=== PATIENT | male | born 1950 | race Caucasian/White ===

== ENCOUNTER 2023-03-10 08:41 | Inpatient (IN) | payer MEDICARE, OTHER ==
[2023-03-10] VITALS (24 sets, daily range): BP systolic 120–145; BP diastolic 50–102
[~2023-03-10] VITALS: Ht 185.4 cm; Wt 103.7 kg
[~2023-03-10 08:41] MED LIST: ALDACTONE25 MG PO; AMLODIPINE BESY10 MG PO; ASPIRIN EC325 MG PO; CEFDINIR300 MG PO; ELIQUIS5 MG PO; LABETALOL HCL200 MG PO; LIPITOR20 MG PO; LISINOPRIL-HCT1 EAC2 PO; METOPROLOL SUC100 MG PO; METOPROLOL SUC200 MG PO; NORVASC5 MG PO; OXYCODONE HCL5 MG PO; PLAVIX75 MG PO; PREDNISONE20 MG PO; SAW PALMETTO C1 EACH PO; TERAZOSIN HCL5 MG PO; VENTOLIN HFA18 GM INH; ZESTRIL5 MG PO
[2023-03-10 09:01] LABS: HEMOGLOBIN 14.8 g/dL (12.0-18.0); MCH 30.5 (27-36); MCHC 32.2 g/dl (30-36); MCV 94.9 fl (81-99); PLATELET COUNT 195 K/uL (140-440); RBC 4.85 M/ul (4.3-5.7); RDW 14.4 (10.5-15.0)
[2023-03-10 09:15] LABS: BASOPHILS, MANUAL DIFF 1; EOSINOPHILS, MANUAL DIFF 4; LYMPHOCYTES, MANUAL DIFF 24; MONOCYTES, MANUAL DIFF 3; NEUTROPHILS, MANUAL DIFF 68
[2023-03-10 09:21] LABS: BASE EXCESS, BLOOD GAS -5.7 mmol/L (-2-2); O2 SATURATION, BLOOD GAS > 100.0 % (95.0-100.0); OXYGEN RECEIVED, BLOOD GAS 100%; PCO2, BLOOD GAS 55.9 mmHg (35-45); PH, BLOOD GAS 7.22 (7.35-7.45); PO2, BLOOD GAS 481 mmHg (80-100); TOTAL CO2, BLOOD GAS 24.7
[2023-03-10 09:23] LABS: ALBUMIN 4.3 g/dL (3.4-5.0); ALBUMIN/GLOBULIN RATIO 1.34 (1.1-2.4); ANION GAP 14.3 (7-21); BILIRUBIN, TOTAL 0.7 ng/dL (0.2-1.0); BUN/CREATININE RATIO 11.42 (6.0-28.6); CALCIUM 9.1 mg/dL (8.5-10.1); CREATININE, SERUM 1.75 mg/dL (0.70-1.30); POTASSIUM 4.3 mmol/L (3.5-5.1); PROTEIN, TOTAL 7.5 g/dL (6.4-8.2)
[2023-03-10 10:05] LABS: PH, VENOUS 7.254 (7.31-7.41)
[2023-03-10 10:17] LABS: INFLUENZA B NAA NEGATIVE (NEGATIVE); RESPIRATORY SYNCYTIAL VIR NAA NEGATIVE (NEGATIVE)
[2023-03-10 12:00] LABS: PH, VENOUS 7.307 (7.31-7.41)
[2023-03-10] MEDS ORDERED: DILTIAZEM 24HR240 M1 PO (13:08)
--- NOTE | 2023-03-10 13:50 | NUR ---
REPORT RECECIVED FROM ED RN ON 73 YEAR OLD MALE PATIENT ADMITTED TO CCU FROM ED VIA STRETCHER UNDER DR. SHIPMAN WITH DX OF RESP DISTRESS. UPON ARRIVAL TO CCU PATIEN IS ON BIPAP AT 40 % FIO2. IS AWAKE, ALERT AND ORIENTED, COOPERATIVE. PATIOENT IS ABLE TO STAND AND PIVIOT FRON STRETCHER TO BED ON BIPAP. IS FAIRLY STABLE ON FEET. PATIENT HAS HX OF ASTHMA. USE MDI AT HOME. ADMISSION PROCESS STARTED.
--- NOTE | 2023-03-10 14:42 | EKG ---
[facility] [address] [place], [place] [address] Signed Atrial fibrillation with rapid ventricular response Nonspecific ST and T wave abnormality Abnormal ECG When compared with ECG of 17-JAN-2023 11:50, No significant change was found Confirmed by ADRIANA SHIPMAN MD ([id number]) on 03/10/2023 2:42:02 PM Electronically Signed By: ADRIANA SHIPMAN 03/10/23 1442 PATIENT NAME: EDITH JASON Electrocardiogram DATE OF : 46 PHYSICIAN: ADRIANA SHIPMAN REPORT #: [id number] REPORT IS CONFIDENTIAL AND NOT TO BE RELEASED WITHOUT AUTHORIZATION
--- NOTE | 2023-03-10 15:00 | NUR ---
DR. SHIPMAN IN ROOM TO SEE PATIENT ORDERS RECEIVED FOR ABG, CMP, CBC. MEDICATIONS TO BE GIVEN INCLUDE SOLUMEDROL AND IV ABX. SIP OF WATER GIVEN. LUNGS ARE TIGHT WITH WHEEZES THROUGHOUT.
[2023-03-10 15:22] LABS: BASOPHILS 0.1 % (0-2); EOSINOPHILS 0.1 % (0-6); HEMATOCRIT 43.3 % (35.0-50.0); LYMPHOCYTES 3.4 % (24-44); MCH 30.5 (27-36); MCHC 32.3 g/dl (30-36); MCV 94.5 fl (81-99); MONOCYTES 1.2 % (0-12); NEUTROPHILS 95.2 % (39-80); PLATELET COUNT 170 K/uL (140-440); RBC 4.58 M/ul (4.3-5.7); RDW 14.3 (10.5-15.0)
[2023-03-10 15:42] LABS: ALBUMIN 3.9 g/dL (3.4-5.0); ALBUMIN/GLOBULIN RATIO 1.18 (1.1-2.4); ANION GAP 15.7 (7-21); BILIRUBIN, TOTAL 0.7 ng/dL (0.2-1.0); CALCIUM 8.9 mg/dL (8.5-10.1); POTASSIUM 4.7 mmol/L (3.5-5.1); PROTEIN, TOTAL 7.2 g/dL (6.4-8.2)
--- NOTE | 2023-03-10 16:04 | NUR ---
EDITH'S SISTER MARILYNN CALLED CCU AND GIVEN A GENERAL UPDATE. HER PHONE NUMBER IS [phone].
--- NOTE | 2023-03-10 17:03 | NUR ---
PT WITH AUDIBLE EXPIRATORY WHEEZE, RT UNAVAILABLE, ALBUTEROL NEBULIZER ADMINISTERED. AFTER TREATMENT AUDIBLE WHEEZE IMPROVED, LUNCH SOUNDS WITH INSPIRATORY AND EXPIRATORY WHEEZE THROUGHOUT.
--- NOTE | 2023-03-10 18:09 | NUR ---
DR. SHIPMAN UPDATED ON PATIENT STATUS. ORDERS RECEIVED TO HANG 500 MG BOLUS LR. PATIENT STATES THE NEB TREATMENT HE HAD EARLIER HELPED. TOOK DINNER WELL. CARDIZEM GTT AT 10 MG/HR.
--- NOTE | 2023-03-10 19:30 | NUR ---
REMAINS OFF BIPAP. NO RESP DISTRESS NOTE. REPORT TO NEXT SHIFT.
--- NOTE | 2023-03-10 22:09 | NUR ---
PATIENT CASIE IS A PLEASANT GENTLEMAN WHO IS RESTING COMFORTABLY IN BED. HE IS WATCHING TV DENIES ANY NEEDS TO OR WANTS AT THIS TIME. 240CC OF WATER WAS PROVIDED TO HIM ALONG WITH HIS PM MEDS. HE DENIES ANY RESTROOM NEEDS AND HAS A URINAL AT BEDSIDE. SAFETY CHECK PERFORMED, 2.5LO2 VIA NC IN USE, CURRENT SATS AT 96%, DENIES PAIN, AND STATES THAT HE HAS BEEN PLEASED WITH HIS CARE. PERSONAL ITEMS AND CALLLIGHT ARE ON HIS BEDSIDE TABLE.
--- NOTE | 2023-03-10 22:31 | NUR ---
BILATERAL IV PRESENT, PATENT, AND INTACT. BOTH WERE FLUSHED AND ASPIRATED WITHOUT INCIDENT.
[2023-03-11] VITALS (21 sets, daily range): BP systolic 105–140; BP diastolic 58–115
--- NOTE | 2023-03-11 01:34 | NUR ---
PATIENT CASIE CONTINUES TO ENDORSE COMFORT. HE IS RESTING IN BED WATCHING TV AND DENIES ANY NEEDS OR DESIRES AT THIS POINT. HE WAS GIVEN A RESPIRATORY TREATMENT AND IS NOW ON ROOM AIR WITH O2 SATS AT 93%. THE DILTIAZEM GTT REMAIN ON AT 15MG. SAFETY CHECK PERFORMED AND CALL LIGHT AND PERSONAL ITEMS ON BEDSIDE TABLE.
[2023-03-11 05:35] LABS: BASOPHILS 0.2 % (0-2); HEMATOCRIT 37.1 % (35.0-50.0); HEMOGLOBIN 12.4 g/dL (12.0-18.0); LYMPHOCYTES 4.2 % (24-44); MCH 30.9 (27-36); MCHC 33.4 g/dl (30-36); MCV 92.6 fl (81-99); MONOCYTES 2.6 % (0-12); PLATELET COUNT 144 K/uL (140-440); RDW 14.3 (10.5-15.0)
[2023-03-11 05:46] LABS: ANION GAP 15.5 (7-21); BUN/CREATININE RATIO 19.68 (6.0-28.6); CALCIUM 8.8 mg/dL (8.5-10.1); CREATININE, SERUM 1.88 mg/dL (0.70-1.30); POTASSIUM 4.5 mmol/L (3.5-5.1)
--- NOTE | 2023-03-11 05:52 | NUR ---
PT IV PUMP ALARMING. RIGHT HAND IV DRESSING COMING OFF. IV FLUSHED, HAS GOOD BLOOD RETURN. DRESSING CHANGED AND COBAN ADDED. IV MED RESTARTED. PT TOLERATED WELL. PT STATES NO OTHER NEEDS. CALL LIGHT IN REACH.
--- NOTE | 2023-03-11 06:44 | NUR ---
PATIENT CASIE HAD A RESTFUL EVENING WITH MINIMAL COMPLAINTS OVERNIGHT. HE REMAINS IN AFIB AND ON A DILTIAZEM GTT AT 15MG/HR. NEURO- ALERT AND ORIENTED X 4, MOVES ALL EXTREMITIES, ENDORSED COMFORT, PERRL CARDIAC- AFIB 70-95, NO EDEMA, PALPABLE PULSES, AFEBRILE, DILTIAZEM GTT 15MGHR RESP- ROOM AIR, INTERMITTENT O2 THERAPY VIA NASAL CANNULA, BREATH SOUNDS DIMINISHED, GI/- VOIDS IN URINAL, ENDORSED HUNGER IN ANTICIPATION OF BREAKFAST, NO BOWEL MOVEMENT INT- SEE ASSESSMENT LDAS- BILATERAL IVS
--- NOTE | 2023-03-11 08:03 | NUR ---
PT RESTING IN BED AWAKE WATCHING TV. DENIES ALL COMPLAINTS INCLUDING SOB AND CHEST PAIN. DILT DRIP REMAINS AT 15MG/HR, IN ROOM DISCUSSING WITH PT TRANSISTION TO ORAL CARDIZEM. WILL BEGIN TITRATION DOWN ONCE ORAL STARTED. VS WNL. LEFT SIDE LUNG SOUNDS COARSE WHEEZING. ADEQUATE APPETITE FOR BREAKFAST. SISTER IN ROOM TO VISIT.
--- NOTE | 2023-03-11 09:15 | NUR ---
PT VISITING WITH CASE MANAGMENT - CONTINUES TO DENY COMPLAINTS. MEDICATIONS ADMINISTERED, TITRATION TO 10MG/HR ON DILT DRIP. WILL CONTINUE TO MONITOR.
--- NOTE | 2023-03-11 09:20 | NUR ---
Spoke with pt and his sister. Pt lives alone in an apartment with 8 steps. No issues getting in or out of his apartment. Pt drives. He shops, cooks, etc without assist. He would like to have low income housing and I showed him a list and let him know how to apply. Sister states she will help. I suggested he try [facility] as they have a 6 month waiting list, compared to 2 years. Pt declines as he is wanting a bigger apartment. He denies needs for any DME. Pt plans on dc to home when he is cleared medically for dc. No needs at this time. He will fu with finding low income housing on his own. He has worked with [employer] in the past and currently has food stamps.
--- NOTE | 2023-03-11 10:24 | NUR ---
PT ALERT AND VISITING WITH SISTER IN BED. DILTIAZEM DRIP STOPPED, RATE REMAINS CONTROLLED IN 80'S. PT DENIES SOB , RR 17.
--- NOTE | 2023-03-11 11:15 | NUR ---
RN ROUNDING ON PT - PT DENIES SOB OR ANY DISCOMFORT. SMALL RUN OF VENTRICAL RHYTHM NOTED ON MONITOR, PT DENIES FEELING CHANGE. RATES REMAIN IN 80'S.
--- NOTE | 2023-03-11 12:01 | NUR ---
medications reconciled
--- NOTE | 2023-03-11 13:26 | NUR ---
CCU ROUNDS. PT RESPONDED IN A SITUATIONALLY APPROPRIATE MANNER. EXPRESSED GOOD HUMOR. FACILITATED HUMOR. CULTIVATED RELATIONSHIP OF CARE AND SUPPORT. PROVIDED PRAYER.
--- NOTE | 2023-03-11 13:54 | NUR ---
UR NOTE [facility] ATRIAL FIBRILLATION (ISC) INPATIENT 03/10/23 CLINICAL INDICATIONS MET FOR ADMISSION TO INPATIENT CARE GL DAY 1 03/11/23 MET GL DAY 2
--- NOTE | 2023-03-11 14:51 | EKG ---
[facility] [address] [place], [place] [address] Signed Atrial fibrillation with rapid ventricular response with premature ventricular or aberrantly conducted complexes Low voltage QRS Nonspecific ST abnormality Abnormal QRS-T angle, consider primary T wave abnormality Abnormal ECG No previous ECGs available Confirmed by ADRIANA SHIPMAN MD ([id number]) on 03/11/2023 2:51:44 PM Electronically Signed By: ADRIANA SHIPMAN 03/11/23 1451 PATIENT NAME: EDITH JASON Electrocardiogram DATE OF : 46 PHYSICIAN: ADRIANA SHIPMAN REPORT #: [id number] REPORT IS CONFIDENTIAL AND NOT TO BE RELEASED WITHOUT AUTHORIZATION
--- NOTE | 2023-03-11 14:52 | NUR ---
PT ASSISTED UP TO BATHROOM - HR REMAINED BELOW 100 DURATION OF AMBULATION AND WASHING SELF WITH WASH RAGS AT SINK. NEW GOWN AND LINENS PROVIDED. PT CONTINUES TO DENY SOB AND CHEST DISCOMFORT. MINIMAL SOB NOTED DURING AMBULATION, SP02 96% ON ROOM AIR. PT NOW UP TO CHAIR WITH BEDSIDE TABLE AND CALL LIGHT.
--- NOTE | 2023-03-11 14:56 | NUR ---
PT RESTING IN CHAIR WATCHING TV. DENIES NEEDS AT THIS TIME. CALL LIGHT IN REACH.
--- NOTE | 2023-03-11 16:56 | NUR ---
PATIENT SITTING UP IN RECLINER. DINNER PROVIDED. VITALS CHARTED.
--- NOTE | 2023-03-11 17:15 | NUR ---
PT SITTING IN CHAIR EATING DINNER. ASSESSMENT UNCHANGED. HR CONTINUES TO BE WELL CONTROLLED WITH ORAL CARDIZEM - NO SOB, SPO2 STABLE ON ROOM AIR. LEFT SIDE INSPIRATORY WHEEZE PERSISTANT.
--- NOTE | 2023-03-11 19:00 | NUR ---
PT ASSISTED BACK TO BED FROM CHAIR - STEADY ON FEET NOT REQUIRING ADDITIONAL SUPPORTIVE DEVICES. REMAINS IN AFIB WITH RATE CONTROL WITH ORAL CARDIZEM. ROOM AIR WITH STABLE SPO2, AFEBRILE. DENIES ANY NEEDS AT THIS TIME. CALL LIGHT AND TABLE AT BEDSIDE.
--- NOTE | 2023-03-11 20:00 | NUR ---
PATIENT RESTING IN BED ATTEMPTING TO USE HIS PEAK FLOW METER. RT INSTRUCTED ON USE; PATIENT NOT QUITE UNDERSTANDING. REINSTRUCTED PATIENT ON PROPER USE AND INDICATION FOR USE. PATIENT WILL REQUIRE MORE INSTRUCTION PRIOR TO DC. URNAL EMPTIED. PATIENT VS STABLE. TOLERATING ROOM AIR. LUNG SOUNDS ARE COARSE THROUGHOUT. DENIED NEEDS AT THIS TIME. CALL LIGHT IN REACH.
--- NOTE | 2023-03-11 20:30 | NUR ---
EVENING MEDS PROVIDED. PATIENT DENIED ANY NEEDS OR CONCERNS. 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 HR 60-70'S; AFIB AT REST. LIGHTS DIMMED PER REQUEST. CALL LIGHT IN REACH. PATIENT AGREES TO CALL IF HE NEEDS TO EXIT THE BED OR HAS ANY NEEDS.
[2023-03-12] VITALS: BP 95/73
--- NOTE | 2023-03-12 00:15 | NUR ---
PATIENT RESTING IN BED. URNAL EMPTIED. BP CUFF REMOVED PER REQUEST; VS STABLE. 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 PATIENT IS AAOX4. DENIED ANY CONCERNS. CALL LIGHT IN REACH.
--- NOTE | 2023-03-12 02:00 | NUR ---
PATIENT APPEARS TO BE SLEEPING SOUNDLY. CALL LIGHT IN REACH. ALLOWED PATIENT TO REST.
[2023-03-12 04:00] VITALS: BP 123/63
--- NOTE | 2023-03-12 04:00 | NUR ---
PATIENT UP TO USE THE URNAL. URINE IS QS AND CLEAR YELLOW. PATIENT TOLERATING ACTIVITY; HR 60-70'S WITH ACTIVITY. TOLERATING ROOM AIR. DENIED ANY CONCERNS. VS STABLE. CALL LIGHT IN REACH.
--- NOTE | 2023-03-12 06:00 | NUR ---
PATIENT RESTING IN BED WITH EYES CLOSED. VS STABLE. ALLOWED PATIENT TO REST. CALL LIGHT IN REACH.
--- NOTE | 2023-03-12 06:59 | NUR ---
PATIENT UP TO THE RECLINER WITH MINIMAL ASSISTANCE. FRESH ICE WATER PROVIDED. PATIENT APPEARS SLIGHTLY SOB AND GRUNTING WITH ACTIVITY. PATIENT DENIED FEELING SOB OR A NEB TREATMENT. Sp02 95% ON RR; RR 24. CALL LIGHT IN REACH. HR 60-70 AFIB.
--- NOTE | 2023-03-12 07:45 | NUR ---
PT AWAKE SITTING UP IN CHAIR. BREAKFAST PROVIDED - PT DENIES NEEDS OR COMPLAINTS AT THIS TIME.
[2023-03-12] MEDS ORDERED: MEDROL4 MG PO (09:15)
[2023-03-12] MEDS ORDERED: SPIRIVA18 MCG INH (09:16)
[2023-03-12] MEDS ORDERED: AMOXICILLIN875 MG PO (09:18)
[2023-03-12 09:21] VITALS: BP 156/87
--- NOTE | 2023-03-12 09:30 | NUR ---
ASSESSMENT COMPLETE - MD DISCHARGE ORDERS ENTERED. PT AWARE AND ANXIOUS TO GO HOME. VS STABLE.
[2023-03-12 09:31] VITALS: BP 156/87
== END 2023-03-12 10:45 | disposition home or self-care (01) | DRG 308 ==
LOC: ED 08:41 → CCU 12:53
PROVIDERS: Emergency Medicine; ADMIT Internal Medicine; ATTEND Internal Medicine
PROC: 4A033R1 Measurement of Arterial Saturation, Peripheral, Percutaneous Approach (ICD-10-PCS; principal; 2023-03-10)
PROC: 5A09357 Assistance with Respiratory Ventilation, Less than 24 Consecutive Hours, Continuous Positive Airway Pressure (ICD-10-PCS; 2023-03-10)
DX: I48.20 Chronic atrial fibrillation, unspecified (principal); J96.02 Acute respiratory failure with hypercapnia; E87.20 Acidosis, unspecified; J45.901 Unspecified asthma with (acute) exacerbation; D72.829 Elevated white blood cell count, unspecified; Z66 Do not resuscitate; E87.70 Fluid overload, unspecified; I50.9 Heart failure, unspecified; Z95.5 Presence of coronary angioplasty implant and graft; Z88.8 Allergy status to other drugs, medicaments and biological substances; Z79.899 Other long term (current) drug therapy; I25.2 Old myocardial infarction; Z79.01 Long term (current) use of anticoagulants; Z79.51 Long term (current) use of inhaled steroids; Z79.891 Long term (current) use of opiate analgesic; Z79.2 Long term (current) use of antibiotics; Z11.52 Encounter for screening for COVID-19
CPT/HCPCS: 36415; 36600; 71045; 80048; 80053; 82803; 83735; 83880; 84484; 85025; 85379; 87502; 92960; 93005; 93010; 94640; 94660; 94664; 99285-25; A9270; J0456; J2930; J3490; J7060; J7120; U0002

== ENCOUNTER 2024-06-20 21:59 | Emergency (ER) | payer MEDICARE, OTHER ==
[~2024-06-20] VITALS: Ht 185.4 cm; Wt 100.6 kg
[~2024-06-20 21:59] MED LIST changes: +AMOXICILLIN875 MG PO; +DILTIAZEM 24HR240 M1 PO; +MEDROL4 MG PO; +SPIRIVA18 MCG INH
[2024-06-20] MEDS ORDERED: IBLOOD GLUCOSE TEST STRIP 1 EA TEST XX ONE (22:15)
[2024-06-20 22:37] LABS: BASOPHILS 0.3 % (0-2); EOSINOPHILS 0.4 % (0-6); HEMATOCRIT 45.6 % (35.0-50.0); HEMOGLOBIN 15.4 g/dL (12.0-18.0); LYMPHOCYTES 5.8 % (24-44); MCH 30.8 (27-36); MCHC 33.7 g/dl (30-36); MCV 91.3 fl (81-99); MONOCYTES 5.3 % (0-12); NEUTROPHILS 88.2 % (39-80); PLATELET COUNT 188 K/uL (140-440); RBC 4.99 M/ul (4.3-5.7); RDW 14.3 (10.5-15.0)
[2024-06-20] MEDS ORDERED: DIGOXIN 500 MCG/2 ML AMP IV ONE (22:45)
[2024-06-20 22:57] LABS: ALBUMIN 3.9 g/dL (3.4-5.0); ALCOHOL, MEDICAL <3 ng/dL (<3); ALKALINE PHOSPHATASE 78 U/L (46-116); ALT (SGPT) 32 U/L (14-59); ANION GAP 15.2 (7-21); AST (SGOT) 26 U/L (15-37); BILIRUBIN, TOTAL 0.8 mg/dL (0.2-1.0); BUN/CREATININE RATIO 9.18 (6.0-28.6); CALCIUM 9.4 mg/dL (8.5-10.1); CARBON DIOXIDE 25 mmol/L (21-32); CHLORIDE 101 mmol/L (98-107); CREATININE, SERUM 1.96 mg/dL (0.70-1.30); GLOMERULAR FILTRATION RATE,EST 35 mL/min (>60); POTASSIUM 4.2 mmol/L (3.5-5.1); PROTEIN, TOTAL 6.9 g/dL (6.4-8.2); UREA NITROGEN 18 mg/dL (7-18)
[2024-06-20] MEDS ORDERED: HEPARIN SOD,PORK IN 0.45% NACL 500 ML IV SCH (23:30)
[2024-06-21] MEDS ORDERED: LACTATED RINGER'S 1,000 ML IV ONE (00:30)
[2024-06-21] MEDS ORDERED: LACTATED RINGER'S 500 ML IV SCH (00:30)
[2024-06-21 01:00] VITALS: BP 168/76
[2024-06-21] MEDS ORDERED: LACTATED RINGER'S 500 ML IV ONE (02:15)
--- NOTE | 2024-06-21 13:46 | EKG ---
[facility] [address] [place] [address] Signed Atrial fibrillation with rapid ventricular response with premature ventricular or aberrantly conducted complexes Cannot rule out Inferior infarct , age undetermined Anterior infarct , age undetermined Abnormal ECG When compared with ECG of 10-MAR-2023 09:29, Anterior infarct is now present Minimal criteria for Inferior infarct are now present Confirmed by Tressa Finley DO ([id number]) on 06/21/2024 1:46:17 PM Electronically Signed By: TRESSA FINLEY DO 06/21/24 1346 PATIENT NAME: EDITH JASON Electrocardiogram DATE OF : 46 PHYSICIAN: TRESSA FINLEY DO REPORT #: [id number] REPORT IS CONFIDENTIAL AND NOT TO BE RELEASED WITHOUT AUTHORIZATION
== END 2024-06-21 01:00 | disposition short-term general hospital (02) ==
LOC: ED 21:59
PROVIDERS: Internal Medicine
DX: I63.22 Cerebral infarction due to unspecified occlusion or stenosis of basilar artery (principal); I63.211 Cerebral infarction due to unspecified occlusion or stenosis of right vertebral artery; R29.810 Facial weakness; R29.705 NIHSS score 5; I48.91 Unspecified atrial fibrillation; I10 Essential (primary) hypertension; I25.2 Old myocardial infarction; Z88.8 Allergy status to other drugs, medicaments and biological substances; Z79.01 Long term (current) use of anticoagulants; Z79.899 Other long term (current) drug therapy
CPT/HCPCS: 36415; 70450; 70496; 70498; 71045; 80053; 80061; 80307; 83036; 84443; 84484; 85025; 85610; 85730; 93005; 93010; 99285-25; G0480; J1160; J1644; J7120; J7121; Q3014; Q9967